=== PATIENT | male | born 1950 | race Caucasian/White ===

== ENCOUNTER 2016-06-15 21:12 | Emergency (ER) | payer OTHER, SELFPAY ==
[2016-06-15] MEDS ORDERED: Lidocaine 1% 20 ML MDV ONE (22:43)
[2016-06-15] MEDS ORDERED: Triple Antibiotic Oint 1 GM Packet ONE (23:27)
[2016-06-15] MEDS ORDERED: Adacel (T-DAP) 0.5 ML VIAL ONE (23:27)
== END 2016-06-15 23:28 | disposition home or self-care (01) ==
LOC: MADERS 21:12
DX: S61.213A Laceration without foreign body of left middle finger without damage to nail, initial encounter (principal); F17.210 Nicotine dependence, cigarettes, uncomplicated; F17.220 Nicotine dependence, chewing tobacco, uncomplicated; Z23 Encounter for immunization; W26.0XXA Contact with knife, initial encounter
CPT/HCPCS: 12001; 90715; J2001

== ENCOUNTER 2019-05-30 21:24 | Emergency (ER) | payer MEDICAID, SELFPAY ==
[~2019-05-30 21:24] MED LIST: Sodium Chloride 0.9% 1,000 ML BAG ONE; Sodium Chloride 0.9% 100 ML BAG ONE
[2019-05-30] MEDS ORDERED: Diltiazem 125 MG/25 ML ONE (21:36)
[2019-05-30] MEDS ORDERED: Aspirin Chewable 81 MG TAB ONE (21:36)
[2019-05-30 21:41] LABS: #Eosinphils 0.2 thou/uL (0.0-0.7); #Lymphocytes 2.2 thou/uL (1.20-3.40); #Monocytes 0.5 thou/uL (0.11-0.59); #Neutrophils 5.1 thou/uL (1.40-6.50); %Basophils 0.4 % (0.0-1.0); %Eosinophils 2.9 % (0.0-10.0); %Lymphocytes 27.7 % (21.0-51.0); %Monocytes 6.2 % (0.0-10.0); %Neutrophils 62.8 % (42.0-75.0); Mean Corpuscular HGB CONC 32.4 g/dL (32.0-36.0); Mean Corpuscular Hemoglobin 29.6 pg (27.0-31.0); Mean Corpuscular Volume 91.6 fL (78.0-98.0); Mean Platelet Volume 7.1 fL (7.4-10.4); Platelet Count 270 thou/uL (130-400); RBC Distribution Width 12.3 % (11.5-14.5); Red Blood Cell (RBC) Count 4.72 mill/uL (4.70-6.10); White Blood Cell (WBC) Count 8.1 thou/uL (4.8-10.8)
[2019-05-30 21:49] LABS: INR-International Normal Ratio 0.9; PTT 26.6 SEC (22.9-36.1); Prothrombin Time 11.7 SEC (12.0-14.7)
--- NOTE | 2019-05-30 21:57 | RAD ---
PORTABLE CHEST 05/30/19 PROVIDED CLINICAL HISTORY: A-fib with RVR. FINDINGS: The cardiac and mediastinal silhouette within normal limits. No focal consolidation, pleural fluid or pneumothorax apparent. IMPRESSION: No evidence for an acute cardiopulmonary process. POS: [facility]
[2019-05-30 22:00] LABS: ALT (SGPT) 12 U/L (8-55); AST (SGOT) 9 U/L (5-34); Albumin 3.6 g/dL (3.4-4.8); Alkaline Phosphatase 95 U/L (40-110); Anion Gap 15 mmol/L (10-20); BUN (Urea Nitrogen) 24 mg/dL (8.4-25.7); Bilirubin, Total 0.2 mg/dL (0.2-1.2); CK (CPK) 64 U/L (30-200); Calc. Creatinine Clearance 0 mL/min (70-130); Calcium 8.8 mg/dL (7.8-10.44); Carbon Dioxide 22 mmol/L (23-31); Chloride 108 mmol/L (98-107); Estimated GFR-MDRD 66; Globulin 2.5 g/dL (2.4-3.5); Glucose 135 mg/dL (80-115); Potassium 3.7 mmol/L (3.5-5.1); Protein, Total 6.1 g/dL (5.8-8.1); Sodium 141 mmol/L (136-145)
[2019-05-30] MEDS ORDERED: Enoxaparin Sodium 80 MG/0.8 ML SYRINGE ONE (22:08)
[2019-05-30 22:44] LABS: Acetaminophen Less than 6.0 mcg/mL (10.0-30.0); Alcohol Less than 10 mg/dL (Less than 10); Salicylate Less than 8.0 mg/dL (15.0-30.0)
== END 2019-05-30 23:00 | disposition short-term general hospital (02) ==
LOC: MADERS 21:24
DX: I48.91 Unspecified atrial fibrillation (principal); F17.220 Nicotine dependence, chewing tobacco, uncomplicated
CPT/HCPCS: 71045; 80053; 80307; 82550; 83605; 83880; 84443; 84484; 85025; 85379; 85610; 85730; 87040; 93005; 96361; 96372; 96374; J1650; J3490; J7050

== ENCOUNTER 2021-09-03 17:22 | Emergency (ER) | payer MEDICARE, OTHER ==
[2021-09-03] MEDS ORDERED: Lidocaine 1%/Epinephrine 1:100K 10 ML VIAL ONE (17:34)
[2021-09-03] MEDS ORDERED: Boostrix 0.5 ML (Tdap) VIAL ONE (17:47)
[2021-09-03] MEDS ORDERED: Bacitracin 1 PK ONE (17:53)
== END 2021-09-03 18:00 | disposition home or self-care (01) ==
LOC: MADERS 17:22
DX: S51.812A Laceration without foreign body of left forearm, initial encounter (principal); F17.220 Nicotine dependence, chewing tobacco, uncomplicated; W25.XXXA Contact with sharp glass, initial encounter; Z23 Encounter for immunization
CPT/HCPCS: 12002; 90471; 90715